=== PATIENT | male | born 1960 | race Caucasian/White ===

== ENCOUNTER → 2018-10-15 | Outpatient (CLI) | payer BC ==
[~2018-10-15] MED LIST: FLUT9.9S NS; LEVO5TAB28 PO
== END | disposition home or self-care (01) ==
LOC: PREOP 05:41
PROVIDERS: ATTEND Internal Medicine
DX: Z01.818 Encounter for other preprocedural examination (principal)

== ENCOUNTER 2018-10-16 07:55 | Day surgery (SDC) | payer BC ==
--- NOTE | 2018-10-15 18:41 | HISTORY AND PHYSICAL ---
DATE OF SERVICE: COLONOSCOPY H AND P HISTORY OF PRESENT ILLNESS: The patient is a 58-year-old white male referred by Dr. Yola Staton for screening colonoscopy. About three weeks ago, he did have an episode of diarrhea with some rectal bleeding, small volume. Labs were obtained including a chemistry panel, lipid panel and CBC that revealed no significant abnormalities, say for mild eosinophilia at 9.1% on the automated diff. The patient has had resolution of diarrhea and has history of allergic rhinitis. He denies asthma, has had no travel outside of the [facility]. He is currently feeling well with no past history of colonoscopy. He initially had some mild crampy abdominal pain with diarrhea, but this has resolved. Of course, his weight has been stable. PAST SURGICAL HISTORY: The patient reports no past surgeries. PAST MEDICAL HISTORY: Significant for allergic rhinitis. He takes Xyzal and Flonase and is on no other medication and denies any [id number]-[id number] nonsteroidal use. Occasionally, he will take some aspirin and in the form of [facility] [employer]. FAMILY HISTORY: He is not aware of any family history of colon cancer. Father is living at the age of 80 with history of hyperlipidemia, but no known vascular disease. Mother is living at the age of 79 with significant arthritis. Does not know whether it is osteo or rheumatoid. 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 He reports approximately 18 beers per week and smokes 4 to 5 per his description small cigars daily. ALLERGIES: He reports no known drug allergies. REVIEW OF SYSTEMS: CONSTITUTIONAL: He has had no night sweats, chills or fever. GASTROINTESTINAL: As per HPI. PULMONARY: He denies cough, shortness of breath or wheezing. CARDIOVASCULAR: He denies history of previous intervention and cardiovascular intervention, dyspnea on exertion, orthopnea, PND, pedal edema, or chest discomfort. PHYSICAL EXAMINATION: GENERAL: Reveals a well-appearing white male. VITAL SIGNS: Roughly 6 feet tall and 228 pounds. Blood pressure 144/90. HEENT: Examination is unremarkable. Sclerae nonicteric. No evidence for pallor is noted. NECK: Revealed no JVD, adenopathy or bruits. CHEST: Clear to auscultation. CARDIOVASCULAR: Reveals a regular rate and rhythm without murmur, S3 or S4. ABDOMEN: Soft, supple without mass, organomegaly or tenderness. RECTAL: Exam was deferred at the time of the procedure. EXTREMITIES: Reveal no cyanosis, clubbing or edema. ASSESSMENT AND PLAN: The patient was set up for screening colonoscopy on 10/16/2018. Prep instructions with the Mendez-prep kit were given. Questions were answered. I thank you for the referral of this pleasant gentleman. Sincerely, Job ID: [id number] DocumentID: [id number] Dictated Date: 10/14/2018 17:42:16 Forwarder Operator Date: 10/14/2018 18:18:31 Dictated By: JUDY CALERO MD
[~2018-10-16] VITALS: Ht 188 cm; Wt 102.1 kg
[2018-10-16] MEDS ORDERED: D5 LR IV SOLUTION 0 ML IV ONE (07:59)
[2018-10-16 08:00] VITALS: BP 151/95
[2018-10-16] MEDS ORDERED: D5 LR IV SOLUTION 1,000 ML IV STA (08:04)
[2018-10-16] MEDS ORDERED: fentaNYL INJECTION 100 MCG/2 ML AMP IVP ONE (08:15)
[2018-10-16] MEDS ORDERED: LIDOCAINE JELLY 2% 6 ML SYRINGE MM PRN (08:15)
[2018-10-16] MEDS ORDERED: MIDAZOLAM 2 MG/2 ML (VERSED) VIAL IVP ONE (08:15)
[2018-10-16] MEDS ORDERED: D5 LR IV SOLUTION 1,000 ML IV ONE (08:17)
[2018-10-16] MEDS ORDERED: FLUT9.9S NS (08:57)
[2018-10-16] MEDS ORDERED: LEVO5TAB28 PO (08:59)
--- NOTE | 2018-10-16 09:26 | Pre-Op Note & Conscious Sedat ---
Pre-Operative Progress Note H&P Reviewed The H&P was reviewed, patient examined and no changes noted. Date H&P Reviewed: Oct 16, 2018 Time H&P Reviewed: 09:15 Conscious Sedation Pre-Proced ASA Score 1 For ASA 3 and 4: Consider anesthesia and medical clearance. Also, for patients with a history of failed moderate sedation consider anesthesia. Airway Lungs Heart ASA score ASA 1: a normal healthy patient ASA 2: a patient with a mild systemic disease (mid diabetes, controlled hypertension, obesity ASA 3: a patient with a severe systemic disease that limits activity (angina , COPD, prior Myocardial infarction) ASA 4: a patient with an incapacitating disease that is a constant threat to life (CHF, renal failure) ASA 5: a moribund patient not expected to survive 24 hrs. (ruptured aneurysm) ASA 6: a declared brain- patient whose organs are being harvested. For emergent operations, add the letter E after the classification Mallampati Classification Grade 2 Sedation Plan Analgesia, Amnesia, Plan communicated to team members, Discussed options with patient/fam, Discussed risks with patient/fam The patient is an appropriate candidate to undergo the planned procedure, sedation, and anesthesia. The patient immediately re-assessed prior to indication. JUDY CALERO MD Oct 16, 2018 09:26
[2018-10-16] MEDS ORDERED: fentaNYL INJECTION 100 MCG/2 ML AMP ONE (09:34)
[2018-10-16] MEDS ORDERED: LIDOCAINE JELLY 2% 6 ML SYRINGE ONE (09:34)
[2018-10-16] MEDS ORDERED: MIDAZOLAM 2 MG/2 ML (VERSED) VIAL ONE ×2 (09:34)
[2018-10-16 10:10] VITALS: BP 134/88
[2018-10-16 10:40] VITALS: BP 141/91
[2018-10-16 11:00] VITALS: BP 141/91
--- NOTE | 2018-10-16 18:26 | OPERATIVE REPORT ---
DATE OF SERVICE: 10/16/2018 COLONOSCOPY SUMMARY The patient was referred for screening colonoscopy. The patient was placed in left lateral decubitus position. Prior to undergoing colonoscopy, digital rectal evaluation was performed. Anal sphincter tone was normal and the perianal reflex was intact. Prostate is mildly enlarged, anodular and nontender to digital inspection. No other abnormalities of digital inspection of the anal canal or distal rectal vault. The colonoscope was then inserted into the rectum and under direct visualization advanced to the cecum. The cecum was identified by identification of the ileocecal valve and cecal strap. Photographic documentation was obtained. Careful inspection was made as the colonoscope was withdrawn. The patient tolerated the procedure well. FINDINGS: There was no evidence for internal or external hemorrhoids. There is a minimal amount of erythema in the distal rectum without ulceration. The rectum was otherwise unremarkable. Present in the proximal sigmoid colon was approximately 1 cm pedunculated polyp on a moderate size stalk. It was photographed and snared, basketed and retrieved in its entirety for submission for histopathology. There was no subsequent bleeding. The descending colon, transverse colon, hepatic flexure, ascending colon and cecum were unremarkable. ASSESSMENT: 1. Moderate size pedunculated adenomatous appearing polyp was removed via snare ligation from the proximal sigmoid colon. We will await histopathology report, but we will likely be abdicating a one to three year surveillance colonoscopy interval. 2. Digital rectal evaluation was compatible with BPH. 3. The endoscopic findings of the distal rectum were compatible with resolving infectious proctitis. I thank you for the referral of this pleasant gentleman. Sincerely, Job ID: [id number] DocumentID: [id number] Dictated Date: 10/16/2018 11:01:54 Medical Assistant Cardiology Date: 10/16/2018 18:25:40 Dictated By: JUDY CALERO MD
--- NOTE | 2018-10-20 16:22 | OPERATIVE REPORT ---
DATE OF SERVICE: FOLLOWUP REPORT The patient underwent colonoscopy on the 10/16/2018, at which time a pathology report from a proximal sigmoid polypectomy revealed a tubular adenoma. It was a rather large pedunculated polyp and for this reason, I am abdicating a repeat surveillance colonoscopy in one year. I thank you for the referral. Job ID: [id number] DocumentID: [id number] Dictated Date: 10/20/2018 09:33:43 Paste Thinner Date: 10/20/2018 15:52:10 Dictated By: JUDY CALERO MD
== END 2018-10-16 11:05 | disposition home or self-care (01) ==
LOC: ENDO 07:55
PROVIDERS: ATTEND Internal Medicine
DX: Z12.11 Encounter for screening for malignant neoplasm of colon (principal); D12.5 Benign neoplasm of sigmoid colon; K62.9 Disease of anus and rectum, unspecified; N40.0 Benign prostatic hyperplasia without lower urinary tract symptoms; J30.9 Allergic rhinitis, unspecified; F17.290 Nicotine dependence, other tobacco product, uncomplicated